=== PATIENT | female | born 1955 | race Caucasian/White ===

== ENCOUNTER 2017-11-10 11:52 | Day surgery (SDC) | payer OTHER ==
[2017-11-10] MEDS ORDERED: MIDAZOLAM 1 MG/ML 2 ML INJ ×2 (14:31)
[2017-11-10] MEDS ORDERED: FENTAnyl 50 MCG/ML VIAL (14:31)
== END 2017-11-10 18:23 | disposition home or self-care (01) ==
LOC: GIL 11:52
DX: D12.2 Benign neoplasm of ascending colon (principal); D12.5 Benign neoplasm of sigmoid colon
CPT/HCPCS: 45380; 88305